=== PATIENT | male | born 1980 | race African-American/Black ===

== ENCOUNTER 2017-04-10 15:10 | Emergency (ER) | payer SELFPAY ==
[~2017-04-10] VITALS: Ht 177.8 cm; Wt 77.2 kg
[2017-04-10 15:13] VITALS: BP 136/63; PULSE 76; RESP 16; TEMP 98.4; O2SAT 97
--- NOTE | 2017-04-10 16:38 | RADRPT ---
EXAM DATE/TIME: 04/10/2017 15:44 [facility] COMPARISON: No previous studies available for comparison. INDICATIONS : Right foot pain and swelling, no known injury MEDICAL HISTORY : None. SURGICAL HISTORY : None. ENCOUNTER: Initial ACUITY: 1 day PAIN SCORE: 7/10 LOCATION: Right foot FINDINGS: Previous right foot. Mild hallux valgus. Bone alignment within normal limits. No evidence of fractur e. No evidence focal bone erosion. No joint narrowing. Corticated ossicle dorsally at the tarsometata rsal joints on the lateral view indicating sequela of old trauma. Mild sclerosis and deformity of the medial sesamoid. CONCLUSION: 1. Hallux valgus. 2. Stress-related changes or arthritic findings of the medial sesamoid at the great toe. Elías Mane MD on April 10, 2017 at 16:35 Board Certified Radiologist. This report was verified electronically.
[2017-04-10 16:47] VITALS: BP 131/66; PULSE 66; RESP 16; O2SAT 97
--- NOTE | 2017-04-10 16:47 | PD ---
HPI Chief Complaint: Edema Time Seen by Provider: 15:18 Travel History International Travel<30 days: No Contact w/Intl Traveler<30days: No Traveled to known affect area: No History of Present Illness HPI Patient is a 36-year-old male who comes in complaining of pain and swelling to his right foot. He says the swelling is just between his first and second toe. He says his been going on for a few days and is worse because he works standing on his feet. He has not taken anything for the pain. He denies any injury to his foot. He denies any pain in his leg or any chest pain or shortness of breath. PFSH Past Medical History Medical History: Denies Significant Hx Hx Anticoagulant Therapy: No Diabetes: No Tetanus Vaccination: > 5 Years Influenza Vaccination: No Past Surgical History Surgical History: No Previous Surgery Social History Alcohol Use: Yes (SOCIALLY) Tobacco Use: Yes (OCCASIONALLY) Substance Use: No Allergies-Medications (Allergen,Severity, Reaction): Coded Allergies: No Known Allergies (Verified Adverse Reaction, Unknown, 04/10/17) Reported Meds & Prescriptions Reported Meds & Active Scripts Active No Active Prescriptions or Reported Medications Review of Systems General / Constitutional: No: Fever, Chills HENT: No: Headaches, Lightheadedness Cardiovascular: No: Chest Pain or Discomfort Respiratory: No: Shortness of Breath Gastrointestinal: No: Nausea, Vomiting Musculoskeletal: Positive: Edema, Pain Skin: No Rash, No Change in Pigmentation Neurologic: No: Weakness, Dizziness, Sensory Disturbance Physical Exam Narrative GENERAL: Awake and alert, in no acute distress. SKIN: Focused skin assessment warm/dry. No wounds or signs of infection. HEAD: Atraumatic. Normocephalic. EYES: Pupils equal and round. No scleral icterus. ENT: No nasal bleeding or discharge. Mucous membranes pink and moist. CARDIOVASCULAR: Regular rate and rhythm. No murmur appreciated. RESPIRATORY: No accessory muscle use. Clear to auscultation. Breath sounds equal bilaterally. MUSCULOSKELETAL: No obvious deformities. No clubbing. No cyanosis. Minimal swelling beneath the first and second toe of the right foot. Pedal pulses intact. No tenderness to palpation. No calf tenderness or swelling. NEUROLOGICAL: Awake and alert. No obvious cranial nerve deficits. Motor grossly within normal limits. Normal speech. Data Data Last Documented VS Vital Signs Date Time Temp Pulse Resp B/P (MAP) Pulse Ox O2 Delivery O2 Flow Rate FiO2 04/10/17 15:18 Room Air 04/10/17 15:13 98.4 76 16 136/63 (87) 97 Orders Orders Foot, Complete ([id number]) (04/10/17 ) [facility] Medical Decision Making Medical Screen Exam Complete: Yes Emergency Medical Condition: Yes Medical Record Reviewed: Yes Differential Diagnosis Fracture versus sprain versus arthritis versus tendinitis Narrative Course Patient is a 36-year-old male who comes in complaining of right foot pain and swelling. Exam shows minimal swelling beneath the first and second toe on the right foot. X-ray performed shows hallux valgus. Patient advised to wear shoes with good conditioning and take Tylenol or ibuprofen as needed. Given a note for work. Advised to return to the ED as needed for any worsening symptoms. Diagnosis Primary Impression: Foot pain, right Patient Instructions: Foot Sprain (ED), General Instructions Additional Instructions: Take Tylenol or ibuprofen as needed. Make sure he wears shoes with good conditioning and support. Apply ice as needed. Return to the ED as needed for any worsening symptoms. Scripts No Active Prescriptions or Reported Meds Disposition: 01 DISCHARGE HOME Condition: Stable Stephanie Blanchard MD Apr 10, 2017 16:47
== END 2017-04-10 16:52 | disposition home or self-care (01) ==
LOC: PHED 15:10
DX: M79.671 Pain in right foot (principal); M20.11 Hallux valgus (acquired), right foot
CPT/HCPCS: 73630; 99283

== ENCOUNTER 2017-04-13 21:48 | Emergency (ER) | payer SELFPAY ==
[~2017-04-13] VITALS: Ht 177.8 cm; Wt 77.0 kg
[2017-04-13 21:50] VITALS: BP 131/74; PULSE 82; RESP 16; TEMP 99.1; O2SAT 96
[2017-04-13] MEDS ORDERED: CEPHALEXIN MONOHYDRATE 500 MG CAP PO ONE (22:15)
[2017-04-13] MEDS ORDERED: FLUCONAZOLE 100 MG TAB PO ONE (22:15)
[2017-04-13] MEDS ORDERED: SULFAMETHOXAZOLE-TRIMETHOPRIM DS 800-160 MG TAB PO ONE (22:15)
--- NOTE | 2017-04-13 22:23 | PD ---
HPI Chief Complaint: Edema Time Seen by Provider: 22:12 Travel History International Travel<30 days: No Contact w/Intl Traveler<30days: No Traveled to known affect area: No History of Present Illness HPI This is a 36-year-old male with no significant past medical history. He presents for evaluation of right foot pain and swelling. He reports that initially started as pain and swelling focally to the interdigital area of the right foot between the first and second toes. He was seen at [facility] for an x-ray of the right foot was obtained feeling no acute abnormalities. The patient presents today because he has had increased swelling and pain in his right foot. Pain is aching and worse when walking. He denies any fevers, chills. He denies any trauma. He denies any puncture wounds or open skin lesions. He denies any history of gout. No other complaints. [facility] Past Medical History Medical History: Denies Significant Hx Hx Anticoagulant Therapy: No Diabetes: No Past Surgical History Surgical History: No Previous Surgery Social History Alcohol Use: Yes (SOCIALLY) Tobacco Use: Yes (OCCASIONALLY) Substance Use: No Allergies-Medications (Allergen,Severity, Reaction): Coded Allergies: No Known Allergies (Verified Adverse Reaction, Unknown, 04/10/17) Reported Meds & Prescriptions Reported Meds & Active Scripts Active Keflex (Cephalexin) 500 Mg Capsule 500 Mg PO TID 10 Days Bactrim DS (Sulfamethoxazole-Trimethoprim) 800-160 Mg Tab 1 Tab PO BID Fluconazole 150 Mg Tab 150 Mg PO WEEKLY Review of Systems Except as stated in HPI: all other systems reviewed are Neg Physical Exam Narrative GENERAL: Well-developed well-nourished male in no acute distress SKIN: Warm and dry. Examination reveals tinea pedis in the interdigital webspace between the right foot first and second toes. There is some surrounding erythema/edema on the dorsal aspect of the distal right foot. HEAD: Atraumatic. Normocephalic. EYES: Pupils equal and round. No scleral icterus. No injection or drainage. ENT: No nasal bleeding or discharge. Mucous membranes pink and moist. NECK: Trachea midline. No JVD. CARDIOVASCULAR: Regular rate and rhythm. No murmur appreciated. RESPIRATORY: No accessory muscle use. Clear to auscultation. Breath sounds equal bilaterally. GASTROINTESTINAL: Abdomen soft, non-tender, nondistended. Hepatic and splenic margins not palpable. MUSCULOSKELETAL: Skin as noted above with no bony deformities, 2+ dorsalis pedis pulse. There is no right thigh or calf tenderness. NEUROLOGICAL: Awake and alert. No obvious cranial nerve deficits. Motor grossly within normal limits. Normal speech. PSYCHIATRIC: Appropriate mood and affect; insight and judgment normal. Data Data Last Documented VS Vital Signs Date Time Temp Pulse Resp B/P (MAP) Pulse Ox O2 Delivery O2 Flow Rate FiO2 04/13/17 21:50 99.1 82 16 131/74 (93) 96 Room Air Orders Orders Fluconazole (Diflucan) (04/13/17 22:15) Sulfamet-Trimeth Ds 800-160 Mg (Bactrim (04/13/17 22:15) Cephalexin (Keflex) (04/13/17 22:15) Ed Discharge Order (04/13/17 22:15) [facility] Medical Decision Making Medical Screen Exam Complete: Yes Emergency Medical Condition: Yes Medical Record Reviewed: Yes Differential Diagnosis Tinea pedis, cellulitis, septic arthritis, metatarsal stress fracture, gouty arthritis, DVT Narrative Course Examination is consistent with tinea pedis with likely now forming secondary cellulitis. The patient will be started on fluconazole 150 mg weekly for a total 4 weeks. He will be started on Bactrim and Keflex for 10 days. Discussed signs and symptoms that would warrant returning to the emergency room. He is stable for discharge. Diagnosis Primary Impression: Tinea pedis Additional Impression: Cellulitis of right foot Additional Instructions: Medication as prescribed. Elevate. Crutches as needed. Follow-up with primary care physician in one to 2 weeks for recheck and return for any acutely new or worsening symptoms. Med/Other Pt SpecificInfo: Prescription(s) given Scripts Cephalexin (Keflex) 500 Mg Capsule 500 MG PO TID for Infection for 10 Days, CAP 0 Refills Prov: Fior Woodard MD 04/13/17 Sulfamethoxazole-Trimethoprim (Bactrim DS) 800-160 Mg Tab 1 TAB PO BID for Infection, #20 TAB 0 Refills Prov: Fior Woodard MD 04/13/17 Fluconazole (Fluconazole) 150 Mg Tab 150 MG PO WEEKLY for Infection, #3 TAB 0 Refills Prov: Fior Woodard MD 04/13/17 Disposition: 01 DISCHARGE HOME Condition: Stable Cody Pollack Apr 13, 2017 22:23
[2017-04-13] MEDS ORDERED: FLUC150T PO (22:25)
[2017-04-13] MEDS ORDERED: CEPH-460 PO (22:25)
[2017-04-13] MEDS ORDERED: BACT800T5 PO (22:25)
== END 2017-04-13 23:38 | disposition home or self-care (01) ==
LOC: NEPD 21:48
DX: B35.3 Tinea pedis (principal); L03.115 Cellulitis of right lower limb; Z72.0 Tobacco use
CPT/HCPCS: 99284

== ENCOUNTER 2017-05-02 15:45 | Emergency (ER) | payer SELFPAY ==
[~2017-05-02] VITALS: Ht 177.8 cm; Wt 77.3 kg
[~2017-05-02 15:45] MED LIST: BACT800T5 PO; CEPH-460 PO; FLUC150T PO
[2017-05-02 15:46] VITALS: BP 130/83; PULSE 59; RESP 16; TEMP 98.9; O2SAT 100
--- NOTE | 2017-05-02 16:11 | RADRPT ---
EXAM DATE/TIME: 05/02/2017 15:59 [facility] COMPARISON: No previous studies available for comparison. INDICATIONS : Left wrist pain after being slammed in a door. MEDICAL HISTORY : None. SURGICAL HISTORY : None. ENCOUNTER: Initial ACUITY: 1 day PAIN SCORE: 8/10 LOCATION: Left wrist FINDINGS: Three view examination of the left wrist demonstrates no soft tissue swelling, dislocation, or fractu re. The carpal bones are in normal alignment. The joint spaces are maintained. Bony mineralization is normal. CONCLUSION: Unremarkable examination of the left wrist. Adrian Vieira MD on May 02, 2017 at 16:08 Board Certified Radiologist. This report was verified electronically.
--- NOTE | 2017-05-02 16:22 | PD ---
HPI Chief Complaint: Injury Time Seen by Provider: 16:05 Travel History International Travel<30 days: No Contact w/Intl Traveler<30days: No Traveled to known affect area: No History of Present Illness HPI 36-year-old male here with left wrist pain after his arm was slammed in a dump truck door while at work. He denies paresthesia or weakness of the extremity. He has full range of motion of the wrist and all digits. Pain with palpation of the distal aspect of the forearm. Alleviated with rest. Symptom severity is moderate. No other injuries. PFSH Past Medical History Medical History: Denies Significant Hx Hx Anticoagulant Therapy: No Diabetes: No Social History Alcohol Use: Yes (SOCIALLY) Tobacco Use: Yes (OCCASIONALLY) Substance Use: No Allergies-Medications (Allergen,Severity, Reaction): Coded Allergies: No Known Allergies (Verified Adverse Reaction, Unknown, 04/10/17) Reported Meds & Prescriptions Reported Meds & Active Scripts Active Keflex (Cephalexin) 500 Mg Capsule 500 Mg PO TID 10 Days Bactrim DS (Sulfamethoxazole-Trimethoprim) 800-160 Mg Tab 1 Tab PO BID Fluconazole 150 Mg Tab 150 Mg PO WEEKLY Review of Systems Except as stated in HPI: all other systems reviewed are Neg Physical Exam Narrative GENERAL: Alert well-appearing male SKIN: Warm and dry. HEAD: Normocephalic. EYES:No injection or drainage. NECK: Supple, trachea midline. MUSCULOSKELETAL: No cyanosis. Left upper extremity: Notable swelling and mild tenderness to the distal aspect of the forearm volar aspect. No deformity. 2+ radial pulse. Patient is able to flex and extend the wrist and all digits. Normal sensation. Brisk cap refill. Data Data Last Documented VS Vital Signs Date Time Temp Pulse Resp B/P (MAP) Pulse Ox O2 Delivery O2 Flow Rate FiO2 05/02/17 15:46 98.9 59 16 130/83 (99) 100 Orders Orders Wrist, Complete ([id number]) (05/02/17 ) Splint Or Brace Apply/Monitor (05/02/17 16:16) Ed Discharge Order (05/02/17 16:22) MDM Medical Decision Making Medical Screen Exam Complete: Yes Emergency Medical Condition: Yes Differential Diagnosis Wrist fracture, contusion, sprain Narrative Course 36-year-old male here with left wrist pain after his arm was slammed in a dump truck over while at work. Patient has notable swelling to the distal aspect of the forearm. The extremity is neurovascularly intact. X-rays negative for fracture. Patient is splinted. Instructed to ice and elevate the extremity. Return precautions were discussed. Diagnosis Primary Impression: Contusion of left forearm Qualified Codes: S50.12XA - Contusion of left forearm, initial encounter Referrals: Primary Care Physician Departure Forms: Tests/Procedures, Work Release Enter return to work date: May 03, 2017 Special Instructions: No heavy lifting with the left upper extremity for one week Additional Instructions: Ice and elevate the extremity. No heavy lifting or strenuous activities. Take [id number] Tylenol or ibuprofen as needed for pain. Disposition: 01 DISCHARGE HOME Condition: Stable Lucero Bonner May 02, 2017 16:22
== END 2017-05-02 16:36 | disposition home or self-care (01) ==
LOC: NEPK 15:45
DX: S50.12XA Contusion of left forearm, initial encounter (principal); Z72.0 Tobacco use; W23.0XXA Caught, crushed, jammed, or pinched between moving objects, initial encounter; Y99.0 Civilian activity done for income or pay
CPT/HCPCS: 73110; 99283; L3908